=== PATIENT | male | born 1960 | race African-American/Black ===

== ENCOUNTER 2019-04-14 10:15 | Emergency (ER) | payer SELFPAY ==
[~2019-04-14] VITALS: Ht 180.3 cm; Wt 73.0 kg
[2019-04-14] MEDS ORDERED: IBUPROFEN 600MG TABLET PO ONE (13:45)
[2019-04-14] MEDS ORDERED: HYDROCODONE/ACETAMINOPHEN 5/325MG TABLET PO ONE (13:45)
[2019-04-14 17:10] VITALS: BP 142/87
== END 2019-04-14 17:11 | disposition home or self-care (01) ==
LOC: ER 10:15
DX: M25.512 Pain in left shoulder (principal); M54.5 Low back pain; M25.562 Pain in left knee; Z90.49 Acquired absence of other specified parts of digestive tract; W01.0XXA Fall on same level from slipping, tripping and stumbling without subsequent striking against object, initial encounter; Y93.89 Activity, other specified; Y92.018 Other place in single-family (private) house as the place of occurrence of the external cause
CPT/HCPCS: 73030; 73110; 73502; 73560; 99283; Z7610